=== PATIENT | male | born 1995 | race African-American/Black ===

== ENCOUNTER 2020-09-08 12:58 | Emergency (ER) | payer SELFPAY ==
--- NOTE | 2020-09-08 17:53 | ER ---
Nurse's Notes [facility] Name: Eric Burrell Age: 25 yrs Sex: Male : 1995 Arrival Date: 09/08/2020 Time: 12:59 Bed Waiting Private MD: Diagnosis: Presentation: 09/08 13:48 Chief complaint: Patient states: abscess to L axilla x 1 week. Coronavirus screen: aa5 Client denies travel out of the [place] in the last 14 days. Ebola Screen: Patient denies exposure to infectious person. Patient denies travel to an Ebola-affected area in the 21 days before illness onset. Initial Sepsis Screen: Does the patient meet any 2 criteria? No. Patient's initial sepsis screen is negative. Does the patient have a suspected source of infection? No. Patient's initial sepsis screen is negative. Risk Assessment: Do you want to hurt yourself or someone else? Patient reports no desire to harm self or others. Onset of symptoms was August 30, 2020. 13:48 Method Of Arrival: Ambulatory aa5 13:48 Acuity: GENIA 4 aa5 Historical: - Allergies: 13:50 No Known Allergies; aa5 - Home Meds: 13:50 None [Active]; aa5 - PMHx: 13:50 None; aa5 - PSHx: 13:50 None; aa5 - Immunization history:: Adult Immunizations up to date. - Social history:: Smoking status: Patient reports the use of cigarette tobacco products, denies chronic smoking, but will smoke occasionally. Vital Signs: 13:48 BP 131 / 78; Pulse 74; Resp 14; Temp 98.4; Pulse Ox 100% on R/A; Weight 79.38 kg; aa5 Height 5 ft. 9 in. (175.26 cm); Pain 8/10; 13:48 Body Mass Index 25.84 (79.38 kg, 175.26 cm) aa5 ED Course: 12:59 Patient arrived in ED. ds1 13:50 Triage completed. aa5 13:50 Arm band placed on right wrist. aa5 17:47 Kevin Benavides PA is PHCP. mustapha 17:47 Evaristo Maira MD is Attending Physician. mustapha Administered Medications: No medications were administered Outcome: 17:53 Patient left the ED. ss Signatures: Kevin Benavides PA PA jmm Elena Ivory ds1 Jailene Holbrook, RN RN aa5 Staci Grier RN RN ss Talya Hope RN RN ph Corrections: (The following items were deleted from the chart) 17:48 Patient has correct armband on for positive identification. Bed in low position. ph Call light in reach. Side rails up X 1. ph : 17:48 Door closed. Noise minimized. ph ph 17:48 Abuse screen: Denies threats or abuse. Denies injuries from another. ph ph : 17:48 Nutritional screening: No deficits noted. ph ph : 17:48 Tuberculosis screening: No symptoms or risk factors identified. ph ph : 17:48 Fall Risk None identified. ph ph
[2020-09-08 17:57] VITALS: BP 131/78; TEMP 98.4; O2SAT 100
== END 2020-09-08 17:53 | disposition left against medical advice (07) ==
LOC: ER 12:58
DX: L02.412 Cutaneous abscess of left axilla (principal); F17.210 Nicotine dependence, cigarettes, uncomplicated; Z53.21 Procedure and treatment not carried out due to patient leaving prior to being seen by health care provider
CPT/HCPCS: 99281